=== PATIENT | male | born 1985 | race Two or more races ===

== ENCOUNTER 2022-11-04 14:37 | Emergency (ER) | payer SELFPAY ==
[2022-11-04 15:00] VITALS: BP 111/66; PULSE 84; RESP 17; TEMP 36.4; O2SAT 99
--- NOTE | 2022-11-04 15:42 | ED_ITS ---
HPI - Ear Problem General Chief complaint: Ear Stated complaint: l ear pain/fb Time Seen by Provider: 11/04/22 15:12 History of Present Illness HPI Narrative: Patient is a 37-year-old male who presents ER with concerns for a retained piece of cotton from a cotton swab. He was cleaning his ears after haircut and then felt some irritation in the left ear and thinks that cotton is left in there. He is having no difficulty with balance. No drainage. No ear pain. No sinus congestion or sore throat or cough. Review of Systems ENT: Denies dizziness, Denies nasal congestion and Denies sore throat Comments: Ear irritation PMFSH Past Medical History Medical History (Updated 11/04/22 @ 18:05 by Michael Chance MD) No pertinent past medical history Surgical History Surgical History (Updated 11/04/22 @ 18:05 by Michael Chance MD) No pertinent past surgical history Exam Narrative: GENERAL: Well-appearing, well-nourished, and in no acute distress. HEAD: Normocephalic, atraumatic. ENT: Mucous membranes moist. Ear canals normal bilaterally and free of cerumen or foreign body. Tympanic membranes also normal appearance however there is a prominent vessel in the left ear possibly from irritation. No perforation of the eardrums. NEURO: Alert and oriented x3. PSYCH: Normal mood and affect. Course Course Emergency Course: No evidence of foreign body. No otitis media. No cerumen impaction. Discharge home. Vital Signs Vital signs: Vital Signs Temperature 97.6 F 11/04/22 15:00 Pulse Rate 84 11/04/22 15:00 Respiratory Rate 17 11/04/22 15:00 Blood Pressure 111/66 11/04/22 15:00 Pulse Oximetry 99 11/04/22 15:00 Oxygen Delivery Room Air 11/04/22 15:00 Temperature 97.6 F 11/04/22 15:00 Pulse Rate 84 11/04/22 15:00 Respiratory Rate 17 11/04/22 15:00 Blood Pressure 111/66 11/04/22 15:00 Pulse Oximetry 99 11/04/22 15:00 Oxygen Delivery Room Air 11/04/22 15:00 Medical Decision Making Vital Signs Vital Signs: Vital Signs Temperature 97.6 F 11/04/22 15:00 Pulse Rate 84 11/04/22 15:00 Respiratory Rate 17 11/04/22 15:00 Blood Pressure 111/66 11/04/22 15:00 Pulse Oximetry 99 11/04/22 15:00 Oxygen Delivery Room Air 11/04/22 15:00 Temperature 97.6 F 11/04/22 15:00 Pulse Rate 84 11/04/22 15:00 Respiratory Rate 17 11/04/22 15:00 Blood Pressure 111/66 11/04/22 15:00 Pulse Oximetry 99 11/04/22 15:00 Oxygen Delivery Room Air 11/04/22 15:00 Discharge Plan Discharge Clinical Impression: Normal ear exam Patient Disposition: Home, Self-Care Condition: Stable Additional Instructions: There is no evidence of foreign body or infection to your ear. Return the ER if you have any additional concerns. Follow-up/Referrals: PHYSICIAN,MULTICRAFT OPERATOR [Primary Care Provider] -
== END 2022-11-04 16:08 | disposition home or self-care (01) ==
PROVIDERS: Emergency Provider Emergency Medicine
DX: Z03.823 Encounter for observation for suspected inserted (injected) foreign body ruled out (principal)
CPT/HCPCS: 99281

== ENCOUNTER 2025-01-02 12:04 | Emergency (ER) | payer OTHER, SELFPAY ==
--- NOTE | ~2025-01-02 | CT_ITS ---
CLINICAL INDICATION: Perirectal abscess COMPARISON: None. TECHNIQUE: Multiple contiguous axial images of the abdomen and pelvis were performed following the ad ministration of with 100 mL Omnipaque-350 intravenous contrast The dose-length product (DLP) was 208.63 mGy-cm. Automated exposure control and iterative reconstruction technique were employed. FINDINGS/OBSERVATIONS: Visualized lower thorax: The bilateral lung bases are clear. The heart is of normal size, without pericardial effusion. Liver: The liver demonstrates homogeneous enhancement and is not enlarged. Gallbladder and biliary system: The gallbladder is surgically absent. Pancreas: The pancreas enhances homogeneously without ductal dilatation. Little regarding the humeral growth pl ate Spleen: The spleen enhances homogeneously and is not enlarged. Kidneys: The bilateral kidneys enhance symmetrically without hydronephrosis or renal calculi. Adrenal glands: Unremarkable. Gastrointestinal tract: Postoperative change within the right mid to lower abdomen, possibly representing a right hemicolecto my versus ileocecectomy. A rim-enhancing fluid collection is identified within the soft tissues of the perineum, to the left o f midline measuring 38 x 19 x 45 mm (anterior to posterior x medial to lateral x cranial to caudal di mension), consistent with a perianal abscess. A smaller fluid collection is identified within the perianal soft tissues, to the right of midline me asuring 26 x 15 x 22 mm (anterior to posterior x medial to lateral x cranial to caudal dimension) con sistent with a perianal abscess. Appendix: Surgically absent. Vasculature: Unremarkable. Lymph nodes: No pathologically enlarged or morphologically suspicious lymph nodes within the retroperitoneum or at the root of the mesentery. Pelvic structures: The bladder is decompressed, limiting its evaluation. The prostate gland is not enlarged. Body wall and musculoskeletal: Small fat-containing umbilical hernia. No significant degenerative disease within the lower thoracic or lumbosacral spine. IMPRESSION: Perianal abscesses, to the right and left of midline, left larger than right, as detailed above. Reviewed, dictated and finalized at location A. IMPRESSION: Perianal abscesses, to the right and left of midline, left larger than right, a s detailed above.
[2025-01-02 12:06] VITALS: BP 110/75; PULSE 100; RESP 16; TEMP 36.7; O2SAT 98
--- OUTSIDE RECORDS SUMMARY | 2025-01-02 12:06 | XMS_ITS | Encounter Summary ---
Author Organization [facility] Health Address [address] [place] [address] Care Team Providers Care Sweat Box Attendant Name Role Phone Unavailable Primary Care Provider Unavailabl e Reason for Visit * Reason Onset Date Comments Appointment 04/27/2023 Encounter Details Date Type Department Care Team (Late st Contact Info) Description 04/27/2023 Telephone [facility] - Ophthalmology [address] [place] [phone] Viktoriya Zhao MD [address] [place] [address] [place] [phone] Appointment Social History Tobacco Use Types Packs/Day Years Used Date Smoking Tobacco: Never Smokeless Tobacco: Never Alcohol Use Standard Drinks/Week Comments Yes 0 (1 standard drink = 0.6 oz pur e alcohol) occasional Sex and Gender Information Value Date Recorded Sex Assigned at Not on file Legal Sex 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 Zhao. CB# [phone] ZING PAD OPERATOR documented in this encounter Plan of Treatment Not on file documented as of this encounter Visit Diagnoses Not on filedocumented in this encounter
--- OUTSIDE RECORDS SUMMARY | 2025-01-02 12:06 | XMS_ITS | Clinical Summary ---
Author Organization [facility] Address [address] [place] [address] Care Team Providers Care Conference Producer Name Role Phone Unavailable Primary Care Provider Unavailabl e Source Comments [facility],non-owned Affiliates and Associated Physician Practices is amultiple site organization consisting of ambulatory clinics and hospital sitesin [place], [place], [place] and [place]. This disclosure is being madepursuant to the Care Everywhere program and may not contain all information available regarding this patient. Last updated 18.[employer] [facility] Allergies No known active allergies Medications * Be aware that medications may not be up to date on this document. Alwaysverify current medications with the patient. prednisoLONE acetate (Pred Forte) 1 % ophthalmic suspensionIndi cations:Panuve itis of both eyes,Cystoid macular edema of both eyes Instill 1 (one) drop into left eye 2 times daily 15 mL 5 4 Active Adalimumab-ada z (Hyrimoz) 40 MG/0.4ML injectionIndic ations:Panuvei tis of both eyes Inject 0.4 mL subcutaneously every 14 days 2.4 mL 3 5 026 Active Hospital, Clinic, or Other Facility Administered Medication Ordered Dose Route Frequency Start Date End Date Status cyanocobalamin (Vitamin B-12) injection 1,000 mcgIndications:B12 deficiency 1000 mcg IM EVERY 30 DAYS 10/07/2022 Active Active Problems Problem Noted Date Diagnosed Date 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 Encounters Date Type Department Care Team Description 12/19/2024 Telephone [facility] - Rheumatology [address] [place] [phone] Nasir Chi MD Medication Issue 12/02/2024 Telephone [facility] - Rheumatology [address] [place] [phone] Nasir Chi MD Medication Issue 10/03/2024 Telephone [facility] - Rheumatology [address] [place] [phone] Nasir Chi MD Follow-up 10/03/2024 Telephone [facility] - Rheumatology [address] [place] [phone] Nasir Chi MD Medication Issue 10/03/2024 Telephone [facility] - Rheumatology [address] [place] [phone] Nasir Chi MD Medication Issue 10/03/2024 Orders Only [facility] - Rheumatology [address] [place] [phone] Nasir Chi MD Panuveitis of both eyes from Last 3 Months Immunizations Immunization Administration Dates Next Due Covid Moderna primary monovalent 12+ yr 0.5mL ,08/28/2020 Social History Tobacco Use Types Packs/Day Years Used Date Smoking Tobacco: Never Smokeless Tobacco: Never Tobacco Cessation:Counseling Given: Not Answered Alcohol Use Standard Drinks/Week Comments Yes 0 (1 standard drink = 0.6 oz pur e alcohol) occasional PHQ-2 Answer Date Recorded Patient Health Questionnaire-2 Score 0 12/25/2023 Sex and Gender Information Value Date Recorded Sex Assigned at Not on file Legal Sex Male 5:57 PM RECRUITMENT COORDINATOR Gender Identity Not on file Sexual Orientation Not on file Last Filed Vital Signs Vital Sign Reading Time Taken Comments Blood Pressure 102/67 12/25/2023 9:17 AM CDT Pulse 75 12/25/2023 9:17 AM CDT Temperature 36.6 C (97.8 F) 12/25/2023 9:17 AM CDT Respiratory Rate 16 09/28/2022 1:36 PM CDT Oxygen Saturation 96% 12/25/2023 9:17 AM CDT Inhaled Oxygen Concentration - - Weight 58.3 kg (128 lb 9.6 oz) 12/25/2023 9:17 A M CDT Height 175.3 cm (5' 9) 12/25/2023 9:17 AM CDT Body Mass Index 18.99 12/25/2023 9:17 AM CDT Plan of Treatment Health Maintenance Due Date Last Done Comments HIV SCREENING 2000 HEPATITIS C SCREENING 06/28/2003 DTAP/TDAP/TD VACCINES (1 - Tdap) 2004 HEPATITIS B VACCINE (1 of 3 - 19+ 3-dose series) 2004 PNEUMOCOCCAL VACCINE (1 of 2 - PCV) 2004 ZOSTER VACCINE (1 of 2) 2004 HPV VACCINE (1 - 3-dose SCDM series) 2012 COVID-19 VACCINE (3 - Modern a risk series) 10/27/2020 09/29/2020, 08/28/2020 DEPRESSION SCREENING 06/12/2024 12/25/2023 INFLUENZA VACCINE (#1) 2025 HIB VACCINE Aged Out No longer eligi ble based on patient's age to complete this topic MENINGOCOCCAL (Group B) VACCINE SHARED DECISION-MAKING Aged Out No longer eligible based on patient's age to complete this topic MENINGOCOCCAL GROUPS A/C/Y/W VACCINE Aged Out No longer eligible b ased on patient's age to complete this topic Advance Directives * Full Code (Latest Code Status on File) Date Activated Date Inactivated Comments 09/24/2022 12:14 AM 09/24/2022 2:16 PM
--- OUTSIDE RECORDS SUMMARY | 2025-01-02 12:06 | XMS_ITS | Encounter Summary ---
Author Organization [facility] Healthcare Address [address] [place] [phone] Care Team Providers Care Log Feeder Name Role Phone No, Physician Primary Care Provider [phone] Reason for Visit * Reason Comments Rash Rash on his left but t cheek area that goes down his leg, sting burning pain, bumpy, Encounter Details Date Type Department Care Team (Late st Contact Info) Description 01/02/2025 11:30 AM CDT Office Visit 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 Gender Identity Not on file Sexual Orientation Not on file documented as of this encounter Last Filed Vital Signs Vital Sign Reading Time Taken Comments Blood Pressure 132/77 01/02/2025 11:25 AM CDT Pulse 84 01/02/2025 11:25 AM CDT Temperature 37.3 C (99.1 F) 01/02/2025 11:25 AM CDT Respiratory Rate 18 01/02/2025 11:2 5 AM CDT Oxygen Saturation 98% 01/02/2025 11: 25 AM CDT Inhaled Oxygen Concentration - - Weight 58.8 kg (129 lb 11.2 oz) 025 11:25 AM CDT Height 172.7 cm (5' 8) 01/02/2025 11:2 5 AM CDT Body Mass Index 19.72 01/02/2025 11:25 AM CDT documented in this encounter Plan of Treatment Not on file documented as of this encounter Visit Diagnoses Diagnosis Abscess of left buttock- Primary documented in this encounter Historical Medications * This list may reflect changes made after this encounter. adalimumab-adaz 40 mg/0.4 mL pen injector Inject 40 mg under the skin every 2 (two) weeks 10/03/2024 10/03/2025 added in this encounter Care Teams Log Feeder Relationship Specialty Start Date End Date No, Physician PCP - General 09/27/22 documented as of this encounter
--- OUTSIDE RECORDS SUMMARY | 2025-01-02 12:06 | XMS_ITS | Clinical Summary ---
Author Organization [facility] Address [address] [place] [phone] Care Team Providers Care Airport Operations Supervisor Name Role Phone Nhan Blankenship MD Primary Care Provider [phone] Allergies No known active allergies Medications No known medications Social History Tobacco Use Types Packs/Day Years Used Date Smoking Tobacco: Never Smokeless Tobacco: Never Tobacco Cessation:Counseling Given: Not Answered Alcohol Use Standard Drinks/Week Comments Yes 0 (1 standard drink = 0.6 oz pur e alcohol) Sex and Gender Information Value Date Recorded Sex Assigned at Not on file Legal Sex Male 8:09 PM CDT Gender Identity Not on file Sexual Orientation Not on file Last Filed Vital Signs Vital Sign Reading Time Taken Comments Blood Pressure 124/66 04/25/2024 6:45 PM FOOD PROCESSING PLANT MANAGER Pulse 80 04/25/2024 6:45 PM FOOD PROCESSING PLANT MANAGER Temperature 36.2 C (97.2 F) 04/25/2024 6:45 PM FOOD PROCESSING PLANT MANAGER Respiratory Rate 16 04/25/2024 6:45 PM FOOD PROCESSING PLANT MANAGER Oxygen Saturation 98% 04/25/2024 6:45 PM FOOD PROCESSING PLANT MANAGER Inhaled Oxygen Concentration - - Weight 68 kg (150 lb) 04/25/2024 6:45 PM FOOD PROCESSING PLANT MANAGER Height 172.7 cm (5' 8) 04/25/2024 6:45 PM FOOD PROCESSING PLANT MANAGER Body Mass Index 22.81 04/25/2024 6:45 PM FOOD PROCESSING PLANT MANAGER Plan of Treatment Health Maintenance Due Date Last Done Comments Annual Physical 1988 Hepatitis C 2003 DTaP, Tdap and Td Vaccines ( 1 - Tdap) 2004 Hepatitis B Vaccines (1 of 3 - 19+ 3-dose series) 2004 HPV Vaccines (1 - 3-dose SCD M series) 2012 COVID-19 Vaccine (3 - 2023-2 5 season) 2024 09/29/2020, 08/28/2020 Meningococcal B Vaccine Aged Out No l onger eligible based on patient's age to complete this topic Meningococcal Vaccine Aged Out No josh florencoi eligible based on patient's age to complete this topic Pneumococcal Vaccine: Pediatrics (0 to 5 Years) and At-Risk Patients (6 to 49 Years) Aged Out No longer eligible b ased on patient's age to complete this topic RSV Immunizations Under 20 Months Aged Out No longer eligible b ased on patient's age to complete this topic Insurance [facility] Care Teams Airport Operations Supervisor Relationship Specialty Start Date End Date Nhan Blankenship MD PCP - General SURGERY 11/19/18
--- OUTSIDE RECORDS SUMMARY | 2025-01-02 12:06 | XMS_ITS | Clinical Summary ---
Author Organization [facility] Address [address] [place] [address] Care Team Providers Care Transplant Nurse Name Role Phone No, Physician Primary Care Provider [phone] Allergies No known active allergies Medications adalimumab-adaz 40 mg/0.4 mL pen injector Inject 40 mg under the skin every 2 (two) weeks 10/03/2024 Active Active Problems No known active problems Encounters Date Type Department Care Team Description 01/02/2025 11:30 AM CDT Office Visit [facility] Medical Group Convenient Care at [address] [phone] Vera Alvarez PA Abscess of left buttock (Primary Dx) from Last 3 Months Social History Tobacco Use Types Packs/Day Years Used Date Smoking Tobacco: Never Assessed Personal Safety Answer Date Recorded Getting School Help Needed Not on file 08/05 Sex and Gender Information Value Date Recorded Sex Assigned at Not on file 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 Sex 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:58 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 Gender Identity Not on file Sexual Orientation Not on file Obstetrics History Last Filed Vital Signs Vital Sign Reading [...] Mass Index 19.72 01/02/2025 11:25 AM CDT Plan of Treatment Health Maintenance Due Date Last Done Comments Depression Screening 1985 Hepatitis C Screening 1985 DTaP/Tdap/Td Vaccine (1 - Tdap) 1996 Varicella Vaccines (1 of 2 - 13+ 2-dose series) 1998 Hepatitis B Screening 2003 Regular Well Visit/Exam 18-64 2003 HPV Vaccines (1 - 3-dose SCD M series) 2012 Covid-19 Vaccine (3 - 2023-2 5 season) 2024 09/29/2020, 08/28/2020 Influenza Vaccine (#1) 2025 Pneumococcal vaccine <65 Aged Out No longer eligible based on patient's age to complete this topic Insurance [employer] [place] P[employer] Care Teams Transplant Nurse Relationship Specialty Start Date End Date No, Physician PCP - General 09/27/22
--- OUTSIDE RECORDS SUMMARY | 2025-01-02 12:06 | XMS_ITS | Encounter Summary ---
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
--- OUTSIDE RECORDS SUMMARY | 2025-01-02 12:06 | XMS_ITS | Referral Summary ---
Author Organization [facility] Address [address] [place] [phone] Care Team Providers Care Ore Trimmer Name Role Phone No, Physician Primary Care Provider [phone] Encounters Date Type Department Care Team Description 01/02/2025 11:30 AM CDT Office Visit [facility] Con[facility] at [address] [phone] Vera Alvarez PA Abscess of left buttock (Primary Dx) from Last 3 Months Allergies No known active allergies Medications adalimumab-adaz 40 mg/0.4 mL pen injector Inject 40 mg under the skin every 2 (two) weeks 10/03/2024 Active Active Problems No known active problems Social History Tobacco Use Types Packs/Day Years Used Date Smoking Tobacco: Never Assessed Personal Safety Answer Date Recorded Getting School Help Needed Not on file 08/05 Sex and Gender Information Value Date Recorded Sex Assigned at Not on file Legal Sex Male 9:58 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
--- NOTE | 2025-01-02 14:07 | ED.SKABFB ---
HPI - Skin/Abscess/Foreign Bdy General Chief complaint: Skin/Abscess/Foreign Body Stated complaint: Abcess lower left leg Time Seen by Provider: 01/02/25 14:07 Focused HPI: This is a 39 year old male that presents to the ER for abscess to left buttock. He was sent here for further evaluation from urgent care. Reports some drainage a couple of days ago. Denies fevers. GENERAL: Well-appearing, well-nourished, and in no acute distress. HEAD: Normocephalic, atraumatic. CHEST: Clear to auscultation. ?No respiratory distress. HEART: Regular rate and rhythm.? NEURO: ?Alert and oriented x3. Patient screened in triage and initial orders placed.? ?Additional care and disposition to be based upon?diagnostic testing and treatment. Related Data Allergies Allergy/AdvReac Type Severity Reaction Status Date / Time No Known Allergies Allergy Verified 01/02/25 12:05 PMFSH Past Medical History Medical History (Updated 11/05/22 @ 00:00 by Opal Woodruff) No pertinent past medical history Surgical History Surgical History (Updated 11/04/22 @ 18:05 by Michael Chance MD) No pertinent past surgical history Course Vital Signs Vital signs: Vital Signs Temperature 98.1 F 01/02/25 12:06 Pulse Rate 100 01/02/25 12:06 Respiratory Rate 16 01/02/25 12:06 Blood Pressure 110/75 01/02/25 12:06 Pulse Oximetry 98 01/02/25 12:06 Oxygen Delivery Room Air 01/02/25 12:06 Temperature 98.1 F 01/02/25 12:06 Pulse Rate 100 01/02/25 12:06 Respiratory Rate 16 01/02/25 12:06 Blood Pressure 110/75 01/02/25 12:06 Pulse Oximetry 98 01/02/25 12:06 Oxygen Delivery Room Air 01/02/25 12:06 Discharge Plan Discharge Patient Language: Hungarian Follow-up/Referrals: PHYSICIAN,NURSING CARE ATTENDANT [Primary Care Provider] -
--- NOTE | 2025-01-02 16:21 | ED.SKABFB ---
HPI - Skin/Abscess/Foreign Bdy General Chief complaint: Skin/Abscess/Foreign Body Stated complaint: Abcess lower left leg Time Seen by Provider: 01/02/25 14:07 Source: patient Mode of arrival: ambulatory Limitations: no limitations History of Present Illness HPI narrative: Patient presenting for abscess from his inguinal region. Noticed it about a week ago and has been persistently getting worse. Having lot of pain. No blood in stool. Related Data Allergies Allergy/AdvReac Type Severity Reaction Status Date / Time No Known Allergies Allergy Verified 01/02/25 12:05 Review of Systems Review of Systems: All systems reviewed & are unremarkable except as noted in HPI and below (History a) [facility] Past Medical History Medical History No pertinent past medical history Surgical History Surgical History No pertinent past surgical history Exam Narrative: Constitutional: Generally well appearing, no acute distress Head: Atraumatic, no deformities. Eyes: Pupils equal, round, and reactive to light. Neck: Supple, no tracheal deviation, no JVD. ENMT: Mucous membranes moist Cardiovascular: S1, S2 auscultated. No murmurs, rubs, or gallops. No S3/S4. Normal Distal pulses. No peripheral edema. Respiratory: Lung sounds equal. No wheezes, rales, or rhonchi. Gastrointestinal: Abdomen was soft and non-tender. Non-distended. No rebound or guarding. Genitourinary: Normal penis and scrotum. Rectal area shows large there is swelling over the 3:00 a.m. aspect of the rectal region with induration, fluctuance approximately 6 cm in the vertical orientation. No discharge. No overlying cellulitis Musculoskeletal: Normal muscle tone and bulk. No obvious deformities or tenderness over extremities. Skin: No rashes. Neurological: Strength 5/5 in extremities. Cranial nerves I-XII grossly intact. Distal sensation intact. Mental Status: Awake, alert and oriented x3. Follows commands Course Vital Signs Vital signs: Vital Signs Temperature 36.7 C 01/02/25 12:06 Pulse Rate 100 01/02/25 12:06 Respiratory Rate 16 01/02/25 12:06 Blood Pressure 110/75 01/02/25 12:06 Pulse Oximetry 98 01/02/25 12:06 Oxygen Delivery Room Air 01/02/25 12:06 Temperature 36.7 C 01/02/25 12:06 Pulse Rate 100 01/02/25 12:06 Respiratory Rate 16 01/02/25 12:06 Blood Pressure 110/75 01/02/25 12:06 Pulse Oximetry 98 01/02/25 12:06 Oxygen Delivery Room Air 01/02/25 12:06 Procedures Abscess I/D lizeth-rectal: Date of Incision: 01/02/25 Time of Incision: 18:49 Side (if applicable): left Sedation/analgesia: none Local Anesthetic: lidocaine 1% and with epi Amount of anesthesia used (mL): 6 Technique: incised with #11 blade and probed loculations (Extensive) Amount of fluid expressed (mL): 30 Irrigation: Yes Packing used?: none I&D Results: Pus MDM - Skin/Abscess/Foreign Bdy MDM Narrative Medical decision making narrative: Patient presentation concerning for perianal abscess versus perirectal abscess. Will obtain CT abdomen pelvis to further characterize. CT shows perianal abscess. Discussed with patient, ended up incising and draining with extensive purulent material removed. Patient feeling significantly better. Tolerated well. Started on clindamycin. Pt feeling improved and would like to go home at this point. Return precautions were given to the patient include any new or worsening symptoms or development of and not limited to any chest pain, shortness of breath, lightheadedness, abdominal pain, fevers, chills. Patient understands and agrees. They are to follow-up with her PCP. All questions were answered. I reviewed and interpreted the patient's vital signs, pulse oximetry, panel monitor, history, allergies, and labs and imaging workup. Lab Data 01/02/25 16:27 01/02/25 16:27 Labs: Lab Results 01/02/25 Range/Units 16:27 WBC 9.1 (4.5-10.0) K/mm3 RBC 4.14 L (4.6-6.20) M/mm3 Hgb 14.5 (14.0-18.0) g/dL Hct 42.0 (42.0-52.0) % MCV 101.4 H (80-100) fl MCH 35.0 H (26-34) pg MCHC 34.5 (32-36) g/dl RDW 13.6 (11.5-14.5) % Plt Count 164 (150-375) k/mm3 MPV 10.1 (7.4-10.4) fl Immature Gran % (Auto) 0.2 (0-0.5) % Neut % (Auto) 76.0 H (45.5-73.1) % Lymph % (Auto) 14.4 L (18.3-44.2) % [place] % (Auto) 7.1 (2.6-8.5) % Eos % (Auto) 2.1 (0-4.4) % Baso % (Auto) 0.2 (0.2-1.2) % Lymph # (Auto) 1.32 (0.9-3.2) K/mm3 [place] # (Auto) 0.7 H (0.1-0.6) K/mm3 Eos # (Auto) 0.2 (0-0.3) K/mm3 Baso # (Auto) 0.0 (0.0-0.1) K/mm3 Abs Immat Gran (auto) 0.02 (0.00-0.031) K/mm3 Absolute Neuts (auto) 6.9 H (1.3-6.7) K/mm3 Absolute Nucleated RBC 0.000 (0.0-0.012) K/mm3 Nucleated RBC % 0.0 (0.0-0.2) % Sodium 137 (137-145) mmol/L Potassium 3.7 (3.4-5.0) mmol/L Chloride 102 (98-107) mmol/L Carbon Dioxide 31 H (22-30) mmol/L Anion Gap 4 (4-12) mmol/L BUN 9 (9-20) mg/dL Creatinine 0.96 (0.7-1.3) mg/dL Estim Creat Clear Calc 76 ml/min Estimated GFR > 60 (59 - ) Glucose 106 (65-110) mg/dL Calcium 8.9 (8.4-10.2) mg/dL Total Bilirubin 1.1 (0.2-1.3) mg/dL AST 89 H (17-59) U/L ALT 28 (6-50) U/L Alkaline Phosphatase 112 (38-126) U/L Total Protein 7.0 (6.3-8.2) g/dL Albumin 3.8 (3.5-5.1) g/dL Discharge Plan Discharge Clinical Impression: Abscess, perianal Patient Disposition: Home Condition: Stable Instructions: Antibiotic Form, Abscess (ED) Patient Language: Kazakh Prescriptions: New clindamycin HCl 300 mg capsule 300 mg PO Q8H 7 Days Qty: 21 0RF naproxen 500 mg tablet 500 mg PO BID PRN (Reason: pain) Qty: 20 0RF Follow-up/Referrals: PHYSICIAN,HELP DESK REPRESENTATIVE [Primary Care Provider] - Time of Disposition: 18:48
[2025-01-02 16:32] LABS: Hematocrit 42.0 % (42.0-52.0); Hemoglobin 14.5 g/dL (14.0-18.0); Immature Granulocyte Percent A 0.2 % (0-0.5); Lymphocytes Absolute Auto 1.32 K/mm3 (0.9-3.2); Mean Corpuscular HGB Conc 34.5 g/dl (32-36); Mean Corpuscular Hemoglobin 35.0 pg (26-34); Mean Corpuscular Volume 101.4 fl (80-100); Nucleated Red Blood Cells Absolute Auto 0.000 K/mm3 (0.0-0.012); Nucleated Red Blood Cells Perc 0.0 % (0.0-0.2); Platelet Count Result 164 k/mm3 (150-375); Red Blood Count 4.14 M/mm3 (4.6-6.20); White Blood Count 9.1 K/mm3 (4.5-10.0)
[2025-01-02 16:43] LABS: Alanine Aminotransferase 28 U/L (6-50); Albumin Level 3.8 g/dL (3.5-5.1); Alkaline Phosphatase 112 U/L (38-126); Anion Gap 4 mmol/L (4-12); Aspartate Amino Transferase 89 U/L (17-59); Bilirubin,Total 1.1 mg/dL (0.2-1.3); Blood Urea Nitrogen 9 mg/dL (9-20); Calcium 8.9 mg/dL (8.4-10.2); Carbon Dioxide 31 mmol/L (22-30); Chloride 102 mmol/L (98-107); Estimated CRCL calculation 76 ml/min; Estimated Glomerular Filt Rate > 60; Glucose 106 mg/dL (65-110); Potassium 3.7 mmol/L (3.4-5.0); Sodium 137 mmol/L (137-145); Total Protein 7.0 g/dL (6.3-8.2)
--- OUTSIDE RECORDS SUMMARY | 2025-01-02 16:43 | XMS_ITS | Clinical Summary ---
Author Organization [facility] Address [address] [place] [address] Care Team Providers Care Magnetic Observer Name Role Phone Unavailable Primary Care Provider Unavailabl e Source Comments [facility],non-owned Affiliates and Associated Physician Practices is amultiple site organization consisting of ambulatory clinics and hospital sitesin [place], [place], [place] and [place]. This disclosure is being madepursuant to the Care Everywhere program and may not contain all information available regarding this patient. Last updated 18.[employer] [facility] Allergies No known active allergies Medications * Be aware that medications may not be up to date on this document. Alwaysverify current medications with the patient. prednisoLONE acetate (Pred Forte) 1 % ophthalmic suspensionInd ications:Panu veitis of both eyes,Cystoid macular edema of both eyes Instill 1 (one) drop into left eye 2 times daily 15 mL 5 12/25/19 24 Active Adalimumab-ad az (Hyrimoz) 40 MG/0.4ML injectionIndi cations:Panuv eitis of both eyes Inject 0.4 mL subcutaneously every 14 days 2.4 mL 3 01/03/20 25 2025 Active Adalimumab-ad az (Hyrimoz) 40 MG/0.4ML injectionIndi cations:Panuv eitis of both eyes Inject 0.4 mL subcutaneously every 14 days 2.4 mL 3 10/04/19 25 2024 Discontinued Hospital, Clinic, or Other Facility Administered Medication Ordered Dose Route Frequency Start Date End Date Status cyanocobalamin (Vitamin B-12) injection 1,000 mcgIndications:B12 deficiency 1000 mcg IM EVERY 30 DAYS 10/07/2022 Active Active Problems Problem Noted Date Diagnosed Date 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 Encounters Date Type Department Care Team Description 01/02/2025 Orders Only [facility] - Rheumatology [address] [place] [phone] Nasir Chi MD Panuveitis of both eyes 12/[facility] [address] [place] [phone] Nasir Chi MD Medication Issue 12/02/2024 [facility] [address] [place] [phone] Nasir Chi MD Medication Issue 10/03/2024 [facility] [address] [place] [phone] Nasir Chi MD Follow-up 10/03/2024 [facility] [address] [place] [phone] Nasir Chi MD Medication Issue 10/03/2024 [facility] - Rheumatology [address] [place] [phone] Nasir Chi MD Medication Issue 10/03/2024 Orders Only [facility] - Rheumatology [address] [place] [phone] Nasir Chi MD Panuveitis of both eyes [...] on file 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
--- OUTSIDE RECORDS SUMMARY | 2025-01-02 16:43 | XMS_ITS | Clinical Summary ---
Author Organization [facility] Address [address] [place] [address] Care Team Providers Care Special Effects Designer Name Role Phone No, Physician Primary Care Provider [phone] Allergies No known active allergies Medications adalimumab-adaz 40 mg/0.4 mL pen injector Inject 40 mg under the skin every 2 (two) weeks 10/03/2024 Active Active Problems No known active problems Encounters Date Type Department Care Team Description 01/02/2025 11:30 AM CDT Office Visit [facility] at [address] [phone] Vera Alvarez PA Abscess of left buttock (Primary Dx) from Last 3 Months Social History Tobacco Use Types Packs/Day Years Used Date Smoking Tobacco: Never Assessed Sex and Gender Information Value Date Recorded Sex Assigned at Not on file 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
--- OUTSIDE RECORDS SUMMARY | 2025-01-02 16:43 | XMS_ITS | Encounter Summary ---
Author Organization [facility] Address [address] [place] [address] Care Team Providers Care Lunchroom Mother Name Role Phone No, Physician Primary Care Provider [phone] Reason for Visit * Reason Comments Rash Rash on his left but t cheek area that goes down his leg, sting burning pain, bumpy, Encounter Details Date Type Department Care Team (Late st Contact Info) Description 01/02/2025 11:30 AM CDT Office Visit 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
--- OUTSIDE RECORDS SUMMARY | 2025-01-02 16:43 | XMS_ITS | Encounter Summary ---
Author Organization [facility] Address [address] [facility] [place] [address] Care Team Providers Care Lead Painter Name Role Phone Unavailable Primary Care Provider Unavailabl e Encounter Details Date Type Department Care Team (Late st Contact Info) Description 01/02/2025 Orders Only [facility] - Rheumatology [address] [place] [address], [facility] [place] [phone] Nasir Chi MD [facility] [place] [phone] Panuveitis of both eyes Social History Tobacco Use Types Packs/Day Years Used Date Smoking Tobacco: Never Smokeless Tobacco: Never Alcohol Use Standard Drinks/Week Comments Yes 0 (1 standard drink = 0.6 oz pur e alcohol) occasional PHQ-2 Answer Date Recorded Patient Health Questionnaire-2 Score 0 12/25/2023 Sex and Gender Information Value Date Recorded Sex Assigned at Not on file 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
--- OUTSIDE RECORDS SUMMARY | 2025-01-02 16:43 | XMS_ITS | Encounter Summary ---
Author Organization [facility] Address [address] [place] [address] Care Team Providers Care Violin Maker Hand Name Role Phone Unavailable Primary Care Provider Unavailabl e Reason for Visit * Reason Onset Date Comments Appointment 04/27/2023 Encounter Details Date Type Department Care Team (Late st Contact Info) Description 04/27/2023 Telephone [facility] - Ophthalmology [address] [place] [phone] Viktoriya Zhao MD [address] [place] [address] DEPT [place] [phone] Appointment Social History Tobacco Use Types Packs/Day Years Used Date Smoking Tobacco: Never Smokeless Tobacco: Never Alcohol Use Standard Drinks/Week Comments Yes 0 (1 standard drink = 0.6 oz pur e alcohol) occasional Sex and Gender Information Value Date Recorded Sex Assigned at Not on file 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 Zhao. CB# [phone] O TECHNICIAN documented in this encounter Plan of Treatment Not on file documented as of this encounter Visit Diagnoses Not on filedocumented in this encounter
--- OUTSIDE RECORDS SUMMARY | 2025-01-02 16:43 | XMS_ITS | Clinical Summary ---
Author Organization [facility] Address [address] [place] [address] Care Team Providers Care Adult Caregiver Name Role Phone Nhan Blankenship MD Primary Care Provider [phone] Allergies No known active allergies Medications No [...] Comments Blood Pressure 124/66 04/25/2024 6:45 PM RITUAL CIRCUMCISER Pulse 80 04/25/2024 6:45 PM RITUAL CIRCUMCISER Temperature 36.2 C (97.2 F) 04/25/2024 6:45 PM RITUAL CIRCUMCISER Respiratory Rate 16 04/25/2024 6:45 PM RITUAL CIRCUMCISER Oxygen Saturation 98% 04/25/2024 6:45 PM RITUAL CIRCUMCISER Inhaled Oxygen Concentration - - Weight 68 kg (150 lb) 04/25/2024 6:45 PM RITUAL CIRCUMCISER Height 172.7 cm (5' 8) 04/25/2024 6:45 PM RITUAL CIRCUMCISER Body Mass Index 22.81 04/25/2024 6:45 PM RITUAL CIRCUMCISER Plan of Treatment Health Maintenance Due Date [...] topic Meningococcal Vaccine Aged Out No josh florencio eligible based on patient's age to complete this topic Pneumococcal Vaccine: Pediatrics (0 to 5 Years) and At-Risk Patients (6 to 49 Years) Aged Out No longer eligible b ased on patient's age to complete this topic RSV Immunizations Under 20 Months Aged Out No longer eligible b ased on patient's age to complete this topic Insurance [facility] Care Teams Adult Caregiver Relationship Specialty Start Date End Date Nhan Blankenship MD PCP - General SURGERY 11/19/18
--- OUTSIDE RECORDS SUMMARY | 2025-01-02 16:43 | XMS_ITS | Encounter Summary ---
Author Organization [facility] Address [address] [place] [address] Care Team Providers Care Digital Printer Operator Name Role Phone Unavailable Primary Care Provider Unavailabl e Encounter Details Date Type Department Care Team (Late st Contact Info) Description 09/23/2022 Ophth Exam [facility] [address] [place] [address] Rachna Henson DO [address] [place] [phone] Social History Tobacco Use Types Packs/Day Years Used Date Smoking Tobacco: Never Assessed Sex and Gender Information Value Date Recorded Sex Assigned at Not on file 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
--- OUTSIDE RECORDS SUMMARY | 2025-01-02 16:43 | XMS_ITS | Referral Summary ---
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
== END 2025-01-02 19:00 | disposition home or self-care (01) ==
PROVIDERS: Emergency Provider Emergency Medicine
DX: K61.0 Anal abscess (principal)
CPT/HCPCS: 10060; 36415; 46050; 74177; 80053; 85025; 99284; J2004; Q9967